=== PATIENT | female | born 1990 | race Hispanic/Latino ===

== ENCOUNTER 2018-05-27 22:03 | Emergency (ER) | payer BC ==
[2018-05-27] MEDS ORDERED: IPRATROPIUM/ALBUTEROL SULFATE 3 ML SOLUTION IH ONE (22:20)
[2018-05-27] MEDS ORDERED: BENZONATATE 100 MG CAPSULE PO ONE (23:49)
== END 2018-05-28 00:26 | disposition home or self-care (01) ==
LOC: EDH 22:03
DX: J45.21 Mild intermittent asthma with (acute) exacerbation (principal); J20.8 Acute bronchitis due to other specified organisms; B34.9 Viral infection, unspecified
CPT/HCPCS: 71046; 81025; 87804; 94640